=== PATIENT | female | born 1945 | race Caucasian/White ===

== ENCOUNTER 2019-03-06 10:36 | Emergency (ER) | payer MEDICARE, OTHER, MEDICAID ==
[2019-03-06 11:05] VITALS: BP 163/69; PULSE 65
[2019-03-06 11:19] LABS: CHLORIDE,CL 108 mEq/L (98-106); SODIUM,NA 143 mEq/L (136-145)
[2019-03-06] MEDS ORDERED: Iopamidol 755 Mg/ML 100 ML Bottle IVPUSH ONE (11:42)
--- NOTE | 2019-03-06 12:02 | EDM.PDOC ---
ED HPI GENERAL MEDICAL PROBLEM - General Chief Complaint: General Stated Complaint: SOB Time Seen by Provider: 03/06/19 10:45 Source of Information: Reports: Patient History Limitations: Reports: No Limitations - History of Present Illness INITIAL COMMENTS - FREE TEXT/NARRATIVE: Patient presents to ER with complaints of increased shortness of breath. Has been doctoring with Dr. Nance for this. Has had CT scan, labs, echocardiogram over the last month without finding a cause. She states she did note one of her clinic summaries did list heart failure but she is unsure of that as that has not been discussed. She is scheduled to see a pulmonary disease specialist as they do not feel this is coming from her lungs. She states she can't handle much activity as she has not stop to catch her breath. Shortness of breath seemed to get worse last evening and this am. Weather changes make it worse. Has not had a cough or fever. Onset: Gradual Duration: Week(s):, Waxing/Waning Location: Reports: Chest Severity: Moderate Improves with: Reports: Rest Worsens with: Reports: Movement Associated Symptoms: Reports: Shortness of Breath. Denies: Confusion, Chest Pain, Cough, cough w sputum, Diaphoresis, Fever/Chills, Loss of Appetite, Nausea /Vomiting, Weakness Treatments FUEL RETROFITTING TECHNICIAN: Reports: Other (see below) Other Treatments FUEL RETROFITTING TECHNICIAN: Did start the patient on hydralazine yesterday due to hypertension - Related Data Allergies Allergy/AdvReac Type Severity Reaction Status Date / Time No Known Allergies Allergy Verified 03/06/19 10:46 Home Meds: Home Meds Bimatoprost [LUMIGAN 0.01% Ophth Soln] 1 drop EYELF QPM 03/06/19 [History] Dorzolamide HCl/Pf [Dorzolamide 2% Eye Drop] 1 drop EYEBOTH BID 03/06/19 [ History] Losartan Potassium 50 mg PO BID 03/06/19 [History] Metoprolol Tartrate 25 mg PO BID 03/06/19 [History] Timolol Hemihydrate [Betimol 0.5% Ophth Soln] 1 drop EYEBOTH DAILY 03/06/19 [ History] Timolol Maleate [Timoptic 0.5% Ophth Soln] 1 drop EYEBOTH DAILY 03/06/19 [ History] Torsemide 20 mg PO DAILY 03/06/19 [History] hydrALAZINE [Apresoline] 25 mg PO BID 03/06/19 [History] Past Medical History HEENT History: Reports: Glaucoma Cardiovascular History: Reports: Heart Failure, Hypertension Respiratory History: Reports: Pneumonia, Recurrent Psychiatric History: Reports: Anxiety Social & Family History - Family History Family Medical History: Noncontributory - Tobacco Use Smoking Status *Q: Never Smoker Second Hand Smoke Exposure: No ED ROS GENERAL - Review of Systems Review Of Systems: See Below Constitutional: Reports: Fatigue. Denies: Fever, Chills, Malaise, Weakness, Decreased Appetite HEENT: Denies: Ear Pain, Rhinitis, Sinus Problem, Throat Pain, Vertigo Respiratory: Reports: Shortness of Breath. Denies: Pleuritic Chest Pain, Cough , Sputum Cardiovascular: Denies: Chest Pain, Edema, Lightheadedness Endocrine: Reports: Fatigue GI/Abdominal: Denies: Abdominal Pain, Constipation, Diarrhea, Nausea, Vomiting : Reports: No Symptoms Musculoskeletal: Reports: No Symptoms Skin: Reports: No Symptoms Neurological: Reports: Weakness ED EXAM, GENERAL - Physical Exam Exam: See Below Exam Limited By: No Limitations General Appearance: Alert, WD/WN, No Apparent Distress Ears: Normal External Exam, Normal TMs Nose: Normal Inspection, Normal Mucosa, No Blood Throat/Mouth: Normal Inspection, Normal Oropharynx Head: Normocephalic Neck: Normal Inspection, Supple, Non-Tender Respiratory/Chest: No Respiratory Distress, Lungs Clear, Decreased Breath Sounds Cardiovascular: Normal Peripheral Pulses, Regular Rate, Rhythm, No Edema GI/Abdominal: Normal Bowel Sounds, Soft, Non-Tender Extremities: Normal Inspection, No Pedal Edema Neurological: Alert, Oriented Skin Exam: Warm, Dry Course - Vital Signs Last Recorded V/S: Last Vital Signs Temp 98.2 F 03/06/19 10:50 Pulse 65 03/06/19 10:50 Resp 18 03/06/19 10:50 BP 163/69 H 03/06/19 10:50 Pulse Ox 99 03/06/19 10:50 - Orders/Labs/Meds Orders: Active Orders 24 hr Category Date Time Status Ang Chest [CT] Stat Exams 03/06/19 11:21 Taken Chest 2V [CR] Stat Exams 03/06/19 10:41 Taken Labs: Laboratory Tests 07/10/19 07/10/19 07/10/19 Range/Units 10:50 10:50 10:50 WBC 9.3 (5.0-10.0) 10^3/uL RBC 4.51 (4.00-5.50) 10^6/uL Hgb 13.2 (12.0-16.0) g/dL Hct 40.8 (37.0-47.0) % MCV 90.5 (82.0-94.0) fL MCH 29.3 (27.0-32.0) pg MCHC 32.4 L (33.0-38.0) g/dL RDW Coeff of Mirella 14.2 (11.0-15.0) % Plt Count 52 L (150-400) 10^3/uL Neut % (Auto) 67.0 (35-85) % Lymph % (Auto) 19.5 (10-55) % [place] % (Auto) 10.0 (0-16) % Eos % (Auto) 3.3 (0-5) % Baso % (Auto) 0.2 (0-3) % Neut # (Auto) 6.24 (1.80-7.00) 10^3/uL Lymph # (Auto) 1.82 (1.00-4.80) 10^3/uL [place] # (Auto) 0.93 H (0.00-0.80) 10^3/uL Eos # (Auto) 0.31 (0.00-0.45) 10^3/uL Baso # (Auto) 0.02 10^3/uL PT 10.5 (9.7-12.3) SEC INR 1.02 (0.92-1.18) APTT 23.9 (23.2-32.3) SEC D-Dimer, Quantitative 2.86 H (0.00-0.50) Sodium 143 (136-145) mEq/L Potassium 4.5 (3.5-5.0) mEq/L Chloride 108 H (98-106) mEq/L Carbon Dioxide 25 (21-32) mmol/L BUN 26 H (7-18) mg/dL Creatinine 1.3 H (0.6-1.0) mg/dL Est Cr Clr Drug Dosing 37.48 mL/min Estimated GFR (MDRD) 40 L (>=60) mL/min Glucose 97 (75-99) mg/dL Calcium 9.9 (8.4-10.1) mg/dL Lactate Dehydrogenase 237 H (100-190) U/L Creatine Kinase 101 (21-215) U/L Troponin I < 0.017 (0.00-0.06) ng/mL NT-Pro-B Natriuret Pep 6777 H (0-1000) pg/mL Meds: Medications Discontinued Medications Generic Name Dose Route Start Last Admin Trade Name Freq PRN Reason Stop Dose Admin Levofloxacin/Dextrose 500 mg/ 100 mls @ 100 mls/hr 03/06/19 13:00 03/06/19 13 :04 Premix IV 100 mls/hr Q24H NEIDA Administration Iopamidol 100 ml 03/06/19 11:42 03/06/19 11:52 Isovue-370 (76%) IVPUSH 03/06/19 11:43 100 ml ONETIME ONE Administration - Re-Assessments/Exams Free Text/Narrative Re-Assessment/Exam: 03/06/19 Lab results reviewed. Does have elevated d-dimer and pro-bnp, will obtain last report from pravin if able. Chest xray does show cardiomegaly. Lungs clear. Will proceed with CTA of chest. Patient aware of findings. CTA of chest is negative for PE. Does show infiltrate in RLE. Did discuss with patient. Discussed admission to hospital but patient declines. Will come in for IV levaquin daily for the next 3 days and more if needed. Departure - Departure Time of Disposition: 13:01 Disposition: Home, Self-Care 01 Condition: Fair Clinical Impression: Pneumonia Qualifiers: Pneumonia type: due to other aerobic Gram-negative bacteria Laterality: right Lung location: lower lobe of lung Qualified Code(s): J15.6 - Pneumonia due to other Gram-negative bacteria - Discharge Information *PRESCRIPTION DRUG MONITORING PROGRAM REVIEWED*: No *COPY OF PRESCRIPTION DRUG MONITORING REPORT IN PATIENT [place]: No Referrals: Magdiel Nance MD [Primary Care Provider] - Forms: ED Department Discharge Additional Instructions: 1. Rest 2. Push fluids 3. Continue Torsemide. 4. Return daily for IV Levaquin 5. Follow up with Dr. Nance as planned - My Orders Last 24 Hours: My Active Orders 03/06/19 10:41 Chest 2V [CR] Stat 03/06/19 11:21 Ang Chest [CT] Stat - Assessment/Plan Last 24 Hours: My Active Orders 03/06/19 10:41 Chest 2V [CR] Stat 03/06/19 11:21 Ang Chest [CT] Stat
[2019-03-06] MEDS ORDERED: Levofloxacin/Dextrose 5%-Water 500 MG in Premix Bag 1 BAG IV SCH (13:00)
== END 2019-03-06 14:00 | disposition home or self-care (01) ==
LOC: CC.ED 10:36
DX: J15.6 Pneumonia due to other Gram-negative bacteria (principal); I11.0 Hypertensive heart disease with heart failure; I50.9 Heart failure, unspecified; Z79.899 Other long term (current) drug therapy
CPT/HCPCS: 36415; 71046; 71275; 80048; 82550; 83615; 83880; 84484; 85025; 85379; 85610; 85730; 93005; 96365; 99285; A4217; J1956; Q9967; 93010

== ENCOUNTER 2019-06-10 11:09 | Observation (INO) | payer MEDICARE, OTHER ==
[2019-06-10] MEDS ORDERED: Sodium Chloride 0.9% 10 ML Syringe FLUSH PRN (14:00)
[2019-06-10] MEDS ORDERED: Warfarin 2 MG Tab PO ONE (14:01)
[2019-06-10] MEDS: Furosemide 40 MG/4 ML VIAL IVPUSH SCH ×2 (14:59→21:11)
[2019-06-10] MEDS ORDERED: WARFARIN 2.5 MG PO ONE (15:00)
[2019-06-10] MEDS: Diltiazem 120 MG Cap.CD PO SCH (15:00)
--- NOTE | 2019-06-10 17:26 | EDM.PDOC ---
ED HPI GENERAL MEDICAL PROBLEM - General Chief Complaint: Cardiovascular Problem Stated Complaint: Symptomatic Tachycardia Time Seen by Provider: 06/10/19 11:25 Source of Information: Reports: Patient, Family History Limitations: Reports: No Limitations - History of Present Illness INITIAL COMMENTS - FREE TEXT/NARRATIVE: Tessie is a 74 yo female who presents to the ED via private vehicle with complaints of shortness of breath and dizziness. She admits symptoms started a few days ago and seem to be getting worse. She admits she is unable to lay in bed and has been sleeping in the recliner. States she has a history of atrial fibrillation from March and was seen by Dr. Bowman at [facility] in [place]. She admits she was hospitalized and given medications to treat it. She states she has a known history of congestive heart failure. was recently admitted in [place] for CHF and atrial fibrillation as well. She was recently switched to digoxin for rate control. Denies chest pain. States Dr. Nance did put her on Lasix but the swelling has gotten worse on her legs over the last couple of weeks. She does admit if she is just sitting it seems to go away but with any exertion symptoms return. - Related Data Allergies Allergy/AdvReac Type Severity Reaction Status Date / Time Influenza Virus Vaccines Allergy Cannot Verified 06/10/19 14:59 Remember Home Meds: Home Meds Carvedilol [Coreg] 12.5 mg PO BID 06/10/19 [History] Digoxin [Digox] 125 mcg PO DAILY 06/10/19 [History] Furosemide [Lasix] 20 mg PO 1200 06/10/19 [History] Furosemide [Lasix] 40 mg PO DAILY 06/10/19 [History] Potassium Chloride 20 meq PO DAILY 06/10/19 [History] Warfarin [Coumadin] 2.5 mg PO DAILY 06/10/19 [History] Past Medical History HEENT History: Reports: Glaucoma Cardiovascular History: Reports: Afib, Heart Failure, Hypertension, Other (See Below) Other Cardiovascular History: cardioversion Respiratory History: Reports: Pneumonia, Recurrent Psychiatric History: Reports: Anxiety Social & Family History - Family History Family Medical History: Noncontributory - Tobacco Use Smoking Status *Q: Never Smoker Second Hand Smoke Exposure: No - Caffeine Use Caffeine Use: Reports: None - Recreational Drug Use Recreational Drug Use: No ED ROS GENERAL - Review of Systems Review Of Systems: See Below Constitutional: Reports: Weight Gain. Denies: Fever, Chills HEENT: Reports: No Symptoms Respiratory: Reports: Shortness of Breath. Denies: Wheezing, Cough Cardiovascular: Reports: Dyspnea on Exertion, Edema, Lightheadedness, Palpitations. Denies: Chest Pain, Syncope GI/Abdominal: Reports: No Symptoms : Reports: No Symptoms Musculoskeletal: Reports: No Symptoms Skin: Reports: No Symptoms Neurological: Reports: No Symptoms Psychiatric: Reports: No Symptoms ED EXAM, GENERAL - Physical Exam Exam: See Below Exam Limited By: No Limitations General Appearance: Alert, WD/WN, No Apparent Distress Ears: Normal External Exam, Normal Canal, Hearing Grossly Normal, Normal TMs Nose: Normal Inspection, Normal Mucosa, No Blood Throat/Mouth: Normal Inspection, Normal Lips, Normal Teeth, Normal Gums, Normal Oropharynx, Normal Voice, No Airway Compromise Head: Atraumatic, Normocephalic Neck: Normal Inspection, Supple Respiratory/Chest: No Respiratory Distress, Lungs Clear, No Accessory Muscle Use , Decreased Breath Sounds (in left lower lobe) Cardiovascular: Systolic Murmur, Irregularly Irregular Extremities: Pedal Edema (2+ bilaterally) Neurological: Alert, Oriented, Normal Cognition, No Motor/Sensory Deficits Psychiatric: Normal Affect, Normal Mood Skin Exam: Warm, Dry, Intact, Normal Color, No Rash EKG INTERPRETATION EKG Date: 06/10/19 Rhythm: A-Fib Comparison: NA - No Prior EKG Course - Vital Signs Last Recorded V/S: Last Vital Signs Temp 97.8 F 06/10/19 15:01 Pulse 81 06/10/19 15:01 Resp 20 06/10/19 15:01 BP 126/63 06/10/19 15:01 Pulse Ox 95 06/10/19 15:01 - Orders/Labs/Meds Orders: Active Orders 24 hr Category Date Time Status Chest 2V [CR] Stat Exams 06/10/19 12:21 Taken Medication Orders Carvedilol (Coreg) 12.5 mg PO BID [facility] Digoxin (Lanoxin) 125 mcg PO DAILY [facility] Diltiazem HCl (Cardizem Cd) 120 mg PO DAILY [facility] Last Admin: 06/10/19 15:00 Dose: 120 mg Furosemide (Lasix) 40 mg IVPUSH BID [facility] Last Admin: 06/10/19 14:59 Dose: 40 mg Ownmed Potassium (Chloride 20 Meq) 20 meq PO DAILY [facility] Sodium Chloride (Saline Flush) 10 ml FLUSH ASDIRECTED PRN PRN Reason: Keep Vein Open Warfarin Sodium (Coumadin) 2.5 mg PO DAILY [facility] Labs: Laboratory Tests 06/10/19 06/10/19 06/10/19 Range/Units 11:17 11:17 11:17 WBC 9.1 (5.0-10.0) 10^3/uL RBC 3.82 L (4.00-5.50) 10^6/uL Hgb 11.8 L (12.0-16.0) g/dL Hct 36.9 L (37.0-47.0) % MCV 96.6 H (82.0-94.0) fL MCH 30.9 (27.0-32.0) pg MCHC 32.0 L (33.0-38.0) g/dL RDW Coeff of Mirella 18.4 H (11.0-15.0) % Plt Count 124 L (150-400) 10^3/uL Neut % (Auto) 69.5 (35-85) % Lymph % (Auto) 21.8 (10-55) % [place] % (Auto) 7.1 (0-16) % Eos % (Auto) 1.2 (0-5) % Baso % (Auto) 0.4 (0-3) % Neut # (Auto) 6.33 (1.80-7.00) 10^3/uL Lymph # (Auto) 1.99 (1.00-4.80) 10^3/uL [place] # (Auto) 0.65 (0.00-0.80) 10^3/uL Eos # (Auto) 0.11 (0.00-0.45) 10^3/uL Baso # (Auto) 0.04 10^3/uL PT 16.5 H (9.7-12.3) SEC INR 1.65 H (0.92-1.18) APTT 26.2 (23.2-32.3) SEC Sodium 145 (136-145) mEq/L Potassium 4.4 (3.5-5.0) mEq/L Chloride 110 H (98-106) mEq/L Carbon Dioxide 23 (21-32) mmol/L BUN 23 H (7-18) mg/dL Creatinine 1.6 H (0.6-1.0) mg/dL Est Cr Clr Drug Dosing 30.00 mL/min Estimated GFR (MDRD) 32 L (>=60) mL/min Glucose 137 H D (75-99) mg/dL Calcium 9.5 (8.4-10.1) mg/dL Lactate Dehydrogenase 433 H (100-190) U/L Creatine Kinase 24 (21-215) U/L Troponin I 0.046 (0.00-0.06) ng/mL NT-Pro-B Natriuret Pep (0-1000) pg/mL Digoxin (0.9-2.0) ng/mL 06/10/19 Range/Units 11:30 WBC (5.0-10.0) 10^3/uL RBC (4.00-5.50) 10^6/uL Hgb (12.0-16.0) g/dL Hct (37.0-47.0) % MCV (82.0-94.0) fL MCH (27.0-32.0) pg MCHC (33.0-38.0) g/dL RDW Coeff of Mirella (11.0-15.0) % Plt Count (150-400) 10^3/uL Neut % (Auto) (35-85) % Lymph % (Auto) (10-55) % [place] % (Auto) (0-16) % Eos % (Auto) (0-5) % Baso % (Auto) (0-3) % Neut # (Auto) (1.80-7.00) 10^3/uL Lymph # (Auto) (1.00-4.80) 10^3/uL [place] # (Auto) (0.00-0.80) 10^3/uL Eos # (Auto) (0.00-0.45) 10^3/uL Baso # (Auto) 10^3/uL PT (9.7-12.3) SEC INR (0.92-1.18) APTT (23.2-32.3) SEC Sodium (136-145) mEq/L Potassium (3.5-5.0) mEq/L Chloride (98-106) mEq/L Carbon Dioxide (21-32) mmol/L BUN (7-18) mg/dL Creatinine (0.6-1.0) mg/dL Est Cr Clr Drug Dosing mL/min Estimated GFR (MDRD) (>=60) mL/min Glucose (75-99) mg/dL Calcium (8.4-10.1) mg/dL Lactate Dehydrogenase (100-190) U/L Creatine Kinase (21-215) U/L Troponin I (0.00-0.06) ng/mL NT-Pro-B Natriuret Pep 86778 H (0-1000) pg/mL Digoxin 1.4 (0.9-2.0) ng/mL Meds: Medications Generic Name Dose Route Start Last Admin Trade Name Freq PRN Reason Stop Dose Admin Carvedilol 12.5 mg 06/10/19 20:00 Coreg PO BID [facility] Digoxin 125 mcg 06/11/19 08:00 Lanoxin PO DAILY [facility] Diltiazem HCl 120 mg 06/10/19 14:00 06/10/19 15:00 Cardizem Cd PO 120 mg DAILY NEIDA Administration Furosemide 40 mg 06/10/19 14:00 06/10/19 14:59 Lasix IVPUSH 40 mg BID [facility] Administration Ownmed Potassium 20 meq 06/11/19 08:00 Chloride 20 Meq PO DAILY [facility] Sodium Chloride 10 ml 06/10/19 14:00 Saline Flush FLUSH ASDIRECTED PRN Keep Vein Open Warfarin Sodium 2.5 mg 06/11/19 08:00 Coumadin PO DAILY NEIDA Discontinued Medications Generic Name Dose Route Start Last Admin Trade Name Freq PRN Reason Stop Dose Admin Warfarin Sodium 2.5 mg 06/10/19 14:01 06/10/19 15:01 Coumadin PO 06/10/19 14:02 Not Given ONETIME ONE Warfarin Sodium 5 mg 06/10/19 15:00 06/10/19 15:00 Coumadin PO 06/10/19 15:01 5 mg ONETIME ONE Administration Departure - Departure Time of Disposition: 13:00 Disposition: Refer to Observation Clinical Impression: Atrial fibrillation with RVR Congestive heart failure Qualifiers: Heart failure type: unspecified Heart failure chronicity: acute on chronic Qualified Code(s): I50.9 - Heart failure, unspecified - Problem List & Annotations (1) Atrial fibrillation with RVR SNOMED Code(s): 619438515864147 Code(s): I48.91 - UNSPECIFIED ATRIAL FIBRILLATION Status: Acute Current Visit: Yes (2) Congestive heart failure SNOMED Code(s): 90158483 Code(s): I50.9 - HEART FAILURE, UNSPECIFIED Status: Acute Current Visit: Yes Qualifiers: Heart failure type: unspecified Heart failure chronicity: acute on chronic Qualified Code(s): I50.9 - Heart failure, unspecified - My Orders Last 24 Hours: My Active Orders 06/10/19 12:21 Chest 2V [CR] Stat - Assessment/Plan Admission H&P: Please use this note as an admission H&P Last 24 Hours: My Active Orders 06/10/19 12:21 Chest 2V [CR] Stat Plan: Consulted with Dr. Bowman, egg sorter, at [facility] in [place]. Dr. Bowman did discuss cardioversion and would like to see her in [place] on during satellite clinic. Will admit under observation to Dr. Levine's services. She will be placed on telemetry. Discussed Cardizem with Dr. Bowman and recommended low dose to see if we can control her rate. She is scheduled to see Dr. Bowman at 1: 00pm on in [place]. Will start IV Lasix 40mg BID as she does have a quite elevated ProBNP. I discussed findings with Tessie and also transfer to [facility] for further care, which she would like to try treating locally first and see Dr. Bowman in clinic on . Patient was transferred to the floor in satisfactory condition.
[2019-06-10] MEDS: CARVEDILOL 12.5 MG PO SCH (19:14)
--- NOTE | 2019-06-10 21:06 | PCM.SN ---
- Free Text/Narrative Note: Patient telemetry noted to show 2 second pauses at times, rate down in the 50- 60s. Did assess the patient. No lightheadedness or dizziness, no chest pain or shortness of breath. Blood pressure stable at this time. did contact Dr. Medellin, mechanic's assistant programmable logic controller assembler at [facility]. No recommended changes at this time as patient asymptomatic yet at present. Will continue to monitor and treat accordingly.
[2019-06-11] MEDS: Diltiazem 120 MG Cap.CD PO SCH (08:51)
[2019-06-11] MEDS: CARVEDILOL 12.5 MG PO SCH ×2 (08:51→19:43)
[2019-06-11] MEDS: DIGOXIN 125 MCG PO SCH (08:51)
[2019-06-11] MEDS: Furosemide 40 MG/4 ML VIAL IVPUSH SCH ×2 (08:52→16:44)
[2019-06-11] MEDS: POTASSIUM CHLORIDE 20 MEQ PO SCH (08:52)
[2019-06-11] MEDS: WARFARIN 2.5 MG PO SCH (08:52)
[2019-06-11] MEDS: Aluminum Hydroxide/Magnesium Hydroxide/Simethicone Susp 30 ML Cup PO PRN (10:25)
[2019-06-11] MEDS ORDERED: Aluminum Hydroxide/Magnesium Hydroxide/Simethicone Susp 30 ML Cup ONE (10:28)
--- NOTE | 2019-06-11 14:17 | PCM.PN ---
- General Info Date of Service: 06/11/19 Admission Dx/Problem (Free Text): Atrial Fib with RVR Acute on chronic systolic heart failure, stage III Functional Status: Reports: Pain Controlled, Tolerating Diet. Denies: Ambulating - Review of Systems General: Reports: Weakness, Fatigue, Malaise HEENT: Reports: No Symptoms Pulmonary: Reports: Shortness of Breath. Denies: Wheezing Cardiovascular: Reports: Edema. Denies: Chest Pain, Lightheadedness Gastrointestinal: Denies: Abdominal Pain, Nausea, Vomiting Genitourinary: Reports: No Symptoms Musculoskeletal: Reports: No Symptoms Skin: Reports: Pallor Neurological: Reports: Weakness - Patient Data Vitals - Most Recent: Last Vital Signs Temp 97.4 F 06/11/19 11:21 Pulse 59 L 06/11/19 11:21 Resp 20 06/11/19 11:21 BP 103/58 L 06/11/19 11:21 Pulse Ox 96 06/11/19 11:21 Weight - Most Recent: 180 lb 3.2 oz Lab Results Last 24 Hours: Laboratory Results - last 24 hr 06/11/19 06/11/19 Range/Units 06:50 06:50 PT 17.2 H (9.7-12.3) SEC INR 1.72 H (0.92-1.18) Sodium 144 (136-145) mEq/L Potassium 3.8 (3.5-5.0) mEq/L Chloride 111 H (98-106) mEq/L Carbon Dioxide 24 (21-32) mmol/L BUN 20 H (7-18) mg/dL Creatinine 1.5 H (0.6-1.0) mg/dL Est Cr Clr Drug Dosing 32.00 mL/min Estimated GFR (MDRD) 34 L (>=60) mL/min Glucose 108 H (75-99) mg/dL Calcium 8.5 (8.4-10.1) mg/dL Med Orders - Current: Current Medications Al Hydroxide/Mg Hydroxide (Mag-Al Plus) 30 ml PO Q4H PRN PRN Reason: Indigestion Last Admin: 06/11/19 10:25 Dose: 30 ml Carvedilol (Coreg) 12.5 mg PO BID [facility] Last Admin: 06/11/19 08:51 Dose: 12.5 mg Digoxin (Lanoxin) 125 mcg PO DAILY [facility] Last Admin: 06/11/19 08:51 Dose: 125 mcg Diltiazem HCl (Cardizem Cd) 120 mg PO DAILY [facility] Last Admin: 06/11/19 08:51 Dose: 120 mg Furosemide (Lasix) 40 mg IVPUSH [facility]ID[facility]URETIC [facility] Last Admin: 06/11/19 08:52 Dose: 40 mg Ownmed Potassium (Chloride 20 Meq) 20 meq PO DAILY [facility] Last Admin: 06/11/19 08:52 Dose: 20 meq Sodium Chloride (Saline Flush) 10 ml FLUSH ASDIRECTED PRN PRN Reason: Keep Vein Open Warfarin Sodium (Coumadin) 2.5 mg PO DAILY [facility] Last Admin: 06/11/19 08:52 Dose: 2.5 mg Discontinued Medications Al Hydroxide/Mg Hydroxide (Mag-Al Plus) Confirm Administered Dose 30 ml .ROUTE .STK-MED ONE Stop: 06/11/19 10:29 Last Admin: 06/11/19 10:25 Dose: Not Given Furosemide (Lasix) 40 mg IVPUSH BID [facility] Last Admin: 06/10/19 21:11 Dose: Not Given Warfarin Sodium (Coumadin) 2.5 mg PO ONETIME ONE Stop: 06/10/19 14:02 Last Admin: 06/10/19 15:01 Dose: Not Given Warfarin Sodium (Coumadin) 5 mg PO ONETIME ONE Stop: 06/10/19 15:01 Last Admin: 06/10/19 15:00 Dose: 5 mg - Exam General: Alert, Oriented HEENT: Mucous Membr. Moist/[place] Neck: Supple Lungs: Crackles Cardiovascular: Irregular Rhythm GI/Abdominal Exam: Normal Bowel Sounds, Soft, Non-Tender Extremities: Pedal Edema (1-2+ pitting in lower extremities) Skin: Warm, Dry, Ecchymosis (right eye) Neurological: No New Focal Deficit - Problem List & Annotations (1) Atrial fibrillation with RVR SNOMED Code(s): 844553590049581 Code(s): I48.91 - UNSPECIFIED ATRIAL FIBRILLATION Status: Acute Priority : High Current Visit: Yes (2) Congestive heart failure SNOMED Code(s): 05503759 Code(s): I50.9 - HEART FAILURE, UNSPECIFIED Status: Acute Priority: High Current Visit: Yes Qualifiers: Heart failure type: unspecified Heart failure chronicity: acute on chronic Qualified Code(s): I50.9 - Heart failure, unspecified Annotation/Comment:: Acute on chronic systolic heart failure, stage III - Problem List Review Problem List Initiated/Reviewed/Updated: Yes - My Orders Last 24 Hours: My Active Orders 06/11/19 10:17 Alum Hydrox/Mag Hydrox/Simeth [Mag-Al Plus] 30 ml PO Q4H PRN - Assessment Assessment:: Atrial Fib with RVR Acute on Chronic systolic heart failure, stage III - Plan Plan:: Patient continues to not feel well. Gets dyspneic easily with any exertion, ie up to the bathroom. Does admit that edema is improved today. Has been voiding well, frequently. Telemetry continues to show atrial fib with rate in the 60s to 90s with 2 second pauses. Denies lightheadedness. No chest pain. Blood pressure has remained stable, 103/58. Oxygen sat 96% on room air. Lung sounds still note crackles in the bases. Edema 1-2+ pitting in legs. Labs show normal electrolytes with sodium at 144, potassium at 3.8. Creatinine stable at 1.5. Did contact Dr. Randolph's office last evening due to rate and pauses. As patient is asymptomatic with this, will continue Cardizem, Coreg and digoxin yet at this time. She is scheduled to see Dr. Bowman on in [place] to discuss possible ablation versus pacemaker as likely contributing to CHF overload. Will continue with IV Lasix. Repeat labs in am and monitoring closely.
[2019-06-12 07:22] VITALS: BP 126/44
[2019-06-12] MEDS: Furosemide 40 MG/4 ML VIAL IVPUSH SCH (07:22)
[2019-06-12] MEDS: WARFARIN 2.5 MG PO SCH (07:23)
[2019-06-12] MEDS: Diltiazem 120 MG Cap.CD PO SCH (07:23)
[2019-06-12] MEDS: POTASSIUM CHLORIDE 20 MEQ PO SCH (07:24)
[2019-06-12] MEDS: CARVEDILOL 12.5 MG PO SCH (07:24)
[2019-06-12 08:32] VITALS: PULSE 70
[2019-06-12] MEDS: DIGOXIN 125 MCG PO SCH (08:32)
[2019-06-12] MEDS: Aluminum Hydroxide/Magnesium Hydroxide/Simethicone Susp 30 ML Cup PO PRN (08:53)
--- NOTE | 2019-06-12 22:09 | PCM.DCSUM1 ---
Discharge Summary - Hospital Course Free Text/Narrative:: Tessie is a 74 year old female who presented to the ER with complaints of increased shortness of breath and dizziness. She has a history of atrial fib, has been doctoring with this for the last 2 months since being diagnosed in March. She has been hospitalized at both [facility] and [place]. Is seeing Dr. Bowman for this. Over the last few days, symptoms have been worsening. Known history of CHF. Currently on digoxin for rate control. No chest pain. Has been on Lasix but the swelling in her legs is worsening. Noted palpitations and difficulty with any activity due to shortness of breath. Heart rate in ER 140s-150s. Pablo Raquel consulted with Dr. Bowman at [facility] and he recommended low dose Cardizem for rate control and IV Lasix for CHF Exacerbation. Was scheduled to see him on in [place] to discuss cardioversion for this. Started on Cardizem 120 mg CD. Monitor telemetry. Diagnosis: Stroke: No Modified [place] Scale: No Symptoms at All Modified [place] Scale Score: 0 - Discharge Data Discharge Date: 06/12/19 Discharge Disposition: Home, Self-Care 01 Condition: Fair - Referral to Home Health Primary Care Physician: Magdiel Nance MD - Discharge Diagnosis/Problem(s) (1) Atrial fibrillation with RVR SNOMED Code(s): 360222218329545 ICD Code: I48.91 - UNSPECIFIED ATRIAL FIBRILLATION Status: Acute Priority : High (2) Congestive heart failure SNOMED Code(s): 52517256 ICD Code: I50.9 - HEART FAILURE, UNSPECIFIED Status: Acute Priority: High Problem Details: Acute on chronic systolic heart failure, stage III Qualifiers: Heart failure type: unspecified Heart failure chronicity: acute on chronic Qualified Code(s): I50.9 - Heart failure, unspecified - Patient Summary/Data Complications: none Hospital Course: Patient is feeling somewhat better. Still gets short of breath with activity but improved. Lung sounds are clear, has better air movement than on admit. Edema much improved, down to 1+ pitting at this point. Cardizem CD was given, heart rate slowed to 60s with long pauses at times. Patient asymptomatic during this. Did contact Dr. Medellin in regards to this, did not recommend any changes and to continue to give the Cardizem. Oxygen sats are stable on room air. Is tolerating meals. Will see Dr. Bowman tomorrow to further discuss cardioversion. Continue Cardizem and BID Lasix dose. - Patient Instructions Diet: Usual Diet as Tolerated Activity: As Tolerated - Discharge Plan *PRESCRIPTION DRUG MONITORING PROGRAM REVIEWED*: No *COPY OF PRESCRIPTION DRUG MONITORING REPORT IN PATIENT [place]: No Prescriptions/Med Rec: Diltiazem HCl [Dilt-XR] 120 mg PO DAILY #30 cap.er.deg Furosemide [Lasix] 40 mg PO BID #60 tablet Home Medications: Home Meds Carvedilol [Coreg] 12.5 mg PO BID 06/10/19 [History] Digoxin [Digox] 125 mcg PO DAILY 06/10/19 [History] Potassium Chloride 20 meq PO DAILY 06/10/19 [History] Warfarin [Coumadin] 2.5 mg PO DAILY 06/10/19 [History] Diltiazem HCl [Dilt-XR] 120 mg PO DAILY #30 cap.er.deg 06/12/19 [Rx] Furosemide [Lasix] 40 mg PO BID #60 tablet 06/12/19 [Rx] Patient Handouts: Heart Failure, Atrial Fibrillation Forms: ED Department Discharge Referrals: Magdiel Nance MD [Primary Care Provider] - (Follow up with Dr. Nance in one week if needed dependent on Dr. Bowman's evaluation tomorrow) - Discharge Summary/Plan Comment DC Time >30 min.: No - General Info Date of Service: 06/12/19 Admission Dx/Problem (Free Text: Atrial Fib with RVR Acute on chronic systolic heart failure, stage III Functional Status: Reports: Pain Controlled, Tolerating Diet. Denies: Ambulating - Review of Systems General: Reports: Weakness, Fatigue HEENT: Reports: No Symptoms Pulmonary: Reports: Shortness of Breath. Denies: Cough Cardiovascular: Reports: Edema. Denies: Chest Pain, Lightheadedness Gastrointestinal: Denies: Abdominal Pain, Nausea, Vomiting Genitourinary: Reports: No Symptoms Musculoskeletal: Reports: No Symptoms Skin: Reports: No Symptoms Neurological: Reports: Weakness - Patient Data Vitals - Most Recent: Last Vital Signs Temp 97.5 F 06/12/19 07:21 Pulse 70 06/12/19 08:32 Resp 18 06/12/19 07:21 BP 126/44 L 06/12/19 07:24 Pulse Ox 95 06/12/19 07:21 Weight - Most Recent: 180 lb 3.2 oz Lab Results - Last 24 hrs: Laboratory Results - last 24 hr 06/12/19 06/12/19 06/12/19 Range/Units 07:00 07:00 07:00 WBC 8.1 (5.0-10.0) 10^3/uL RBC 3.64 L (4.00-5.50) 10^6/uL Hgb 11.3 L (12.0-16.0) g/dL Hct 36.0 L (37.0-47.0) % MCV 98.9 H (82.0-94.0) fL MCH 31.0 (27.0-32.0) pg MCHC 31.4 L (33.0-38.0) g/dL RDW Coeff of Mirella 18.3 H (11.0-15.0) % Plt Count 140 L (150-400) 10^3/uL Neut % (Auto) 64.4 (35-85) % Lymph % (Auto) 24.6 (10-55) % [place] % (Auto) 8.7 (0-16) % Eos % (Auto) 1.9 (0-5) % Baso % (Auto) 0.4 (0-3) % Neut # (Auto) 5.22 (1.80-7.00) 10^3/uL Lymph # (Auto) 1.99 (1.00-4.80) 10^3/uL [place] # (Auto) 0.70 (0.00-0.80) 10^3/uL Eos # (Auto) 0.15 (0.00-0.45) 10^3/uL Baso # (Auto) 0.03 10^3/uL PT 19.8 H (9.7-12.3) SEC INR 2.00 H (0.92-1.18) Sodium 145 (136-145) mEq/L Potassium 5.3 H D (3.5-5.0) mEq/L Chloride 112 H (98-106) mEq/L Carbon Dioxide 26 (21-32) mmol/L BUN 20 H (7-18) mg/dL Creatinine 1.7 H (0.6-1.0) mg/dL Est Cr Clr Drug Dosing 28.23 mL/min Estimated GFR (MDRD) 29 L (>=60) mL/min Glucose 109 H (75-99) mg/dL Calcium 8.8 (8.4-10.1) mg/dL NT-Pro-B Natriuret Pep [id number] H (0-1000) pg/mL Med Orders - Current: Current Medications Discontinued Medications Al Hydroxide/Mg Hydroxide (Mag-Al Plus) 30 ml PO Q4H PRN PRN Reason: Indigestion Last Admin: 06/12/19 08:53 Dose: 30 ml Al Hydroxide/Mg Hydroxide (Mag-Al Plus) Confirm Administered Dose 30 ml .ROUTE .STK-MED ONE Stop: 06/11/19 10:29 Last Admin: 06/11/19 10:25 Dose: Not Given Carvedilol (Coreg) 12.5 mg PO BID [facility] Last Admin: 06/12/19 07:24 Dose: 12.5 mg Digoxin (Lanoxin) 125 mcg PO DAILY [facility] Last Admin: 06/12/19 08:32 Dose: 125 mcg Diltiazem HCl (Cardizem Cd) 120 mg PO DAILY [facility] Last Admin: 06/12/19 07:23 Dose: 120 mg Furosemide (Lasix) 40 mg IVPUSH BID [facility] Last Admin: 06/10/19 21:11 Dose: Not Given Furosemide (Lasix) 40 mg IVPUSH BIDDIURETIC [facility] Last Admin: 06/12/19 07:22 Dose: 40 mg [employer] Potassium (Chloride 20 Meq) 20 meq PO DAILY [facility] Last Admin: 06/12/19 07:24 Dose: 20 meq Sodium Chloride (Saline Flush) 10 ml FLUSH ASDIRECTED PRN PRN Reason: Keep Vein Open Warfarin Sodium (Coumadin) 2.5 mg PO DAILY [facility] Last Admin: 06/12/19 07:23 Dose: 2.5 mg Warfarin Sodium (Coumadin) 2.5 mg PO ONETIME ONE Stop: 06/10/19 14:02 Last Admin: 06/10/19 15:01 Dose: Not Given Warfarin Sodium (Coumadin) 5 mg PO ONETIME ONE Stop: 06/10/19 15:01 Last Admin: 06/10/19 15:00 Dose: 5 mg - Exam General: Reports: Alert, Oriented, Mild Distress HEENT: Reports: Mucous Membr. Moist/[place]: Reports: Supple Lungs: Reports: Decreased Breath Sounds Cardiovascular: Reports: Irregular Rhythm GI/Abdominal Exam: Normal Bowel Sounds, Soft, Non-Tender Extremities: Normal Inspection, Pedal Edema (1+ pitting) Skin: Reports: Warm, Dry Neurological: Reports: No New Focal Deficit
== END 2019-06-12 10:15 | disposition home or self-care (01) ==
LOC: CC.ED 11:09 → UNDOADMOB 12:29 → CC.MS 12:29
PROVIDERS: ADMIT Physician Assistant Medical; ATTEND Family Medicine
DX: I48.91 Unspecified atrial fibrillation (principal); I11.0 Hypertensive heart disease with heart failure; I50.23 Acute on chronic systolic (congestive) heart failure; Z88.7 Allergy status to serum and vaccine
CPT/HCPCS: 36415; 71046; 80048; 80162; 82550; 83615; 83880; 84484; 85025; 85610; 85730; 93005; 96374; 96376; 99217; 99220; 99225; 99285-25; A9270-GY; G0378; J1940

== ENCOUNTER 2022-01-23 19:55 | Emergency (ER) | payer MEDICARE, OTHER, MEDICAID ==
[2022-01-23 19:58] VITALS: PULSE 83
[2022-01-23 20:42] VITALS: BP 140/61
== END 2022-01-23 20:48 | disposition home or self-care (01) ==
LOC: CC.ED 19:55
DX: R60.0 Localized edema (principal); I48.91 Unspecified atrial fibrillation; I11.0 Hypertensive heart disease with heart failure; I50.9 Heart failure, unspecified; Z87.891 Personal history of nicotine dependence; Z91.012 Allergy to eggs; Z88.7 Allergy status to serum and vaccine; Z79.01 Long term (current) use of anticoagulants; Z79.899 Other long term (current) drug therapy
CPT/HCPCS: 99283; 99284